=== PATIENT | female | born 1975 | race Caucasian/White ===

== ENCOUNTER 2016-09-22 09:04 | Inpatient (IN) | payer MEDICAID ==
[~2016-09-22] VITALS: Ht 167.6 cm; Wt 97.5 kg
[2016-09-22 10:30] LABS: PLATELET COUNT 328 x10^3mcL (130-400)
[2016-09-22 10:38] LABS: RED CELL DISTRIBUTION WIDTH 18.9 % (11.5-14.5)
[2016-09-22 11:03] LABS: CALCIUM 8.5 mg/dL (8.5-10.1); CARBON DIOXIDE 26.8 mmol/L (21-32); CHLORIDE SERUM 107 mmol/L (98-107); CREATININE SERUM 0.8 mg/dL (0.6-1.0); GFR1 > 60 mL/min; GLUCOSE SERUM 105 mg/dL (74-106); POTASSIUM SERUM 4.3 mmol/L (3.5-5.1); SODIUM SERUM 140 mmol/L (136-145)
[2016-09-22 11:08] LABS: ALKALINE PHOSPHATASE 60 U/L (46-116); ALT/SGPT 35 U/L (14-59); AST/SGOT 27 U/L (15-37); BILIRUBIN TOTAL 0.41 mg/dL (0.20-1.00); LIPASE 199 IU/L (73-393); TOTAL PROTEIN, SERUM 6.9 g/dL (6.4-8.2)
[2016-09-22 11:15] LABS: ALBUMIN 3.3 g/dL (3.4-5.0)
[2016-09-22 11:32] LABS: BAND NEUTROPHIL 0 % (0-10); BASOPHIL 0 % (0-2); MONOCYTE 8 % (0-7); SEGMENTED NEUTROPHILS 58 % (37-75); rbc morphology (normal/abnorm) ABNORMAL (NORMAL)
[2016-09-22 11:33] LABS: ovalocyte/elliptocyte 1+
[2016-09-22 12:38] LABS: microscopic required? NO
[2016-09-22 12:47] LABS: urine erythrocyte NEGATIVE (NEGATIVE)
[2016-09-22 12:48] LABS: FREE T4 1.01 ng/dL (0.76-1.46); FREE THYROXINE INDEX 2.2 ug/dL (1.4-4.5); T4(THYROXINE) 6.7 ug/dL (4.7-13.3)
[2016-09-22 12:49] LABS: CHOLESTEROL/HDL RATIO 4.4
[2016-09-22 12:53] LABS: T3 TOTAL 0.98 ng/mL
[2016-09-22 12:56] LABS: AMPHETAMINE QUAL UR NONE DETECTED (NEG <=1000)
[2016-09-22 13:02] VITALS: BP 139/71
[2016-09-22 18:44] LABS: IRON 18 ug/dL (50-170); TOTAL IRON BINDING CAPACITY 491 ug/dL (250-450)
[2016-09-22 19:10] VITALS: BP 119/62
[2016-09-22 21:43] VITALS: BP 119/67
[2016-09-23 04:15] LABS: BASOPHIL % 4.3 % (0-2); PLATELET COUNT 182 x10^3mcL (130-400); RED CELL DISTRIBUTION WIDTH 17.2 % (11.5-14.5)
[2016-09-23 04:28] LABS: CALCIUM 7.7 mg/dL (8.5-10.1); CARBON DIOXIDE 26.3 mmol/L (21-32); CHLORIDE SERUM 107 mmol/L (98-107); CREATININE SERUM 0.8 mg/dL (0.6-1.0); GFR1 > 60 mL/min; GLUCOSE SERUM 105 mg/dL (74-106); PHOSPHOROUS 4.3 mg/dL (2.5-4.9); POTASSIUM SERUM 4.3 mmol/L (3.5-5.1); SODIUM SERUM 139 mmol/L (136-145)
[2016-09-23 04:46] LABS: rbc morphology (normal/abnorm) ABNORMAL (NORMAL)
[2016-09-23 04:47] LABS: ovalocyte/elliptocyte 1+; tear drop cell (dacryocyte) 1+
[2016-09-23 04:50] LABS: target cell (codocyte) 1+
[2016-09-23 05:56] VITALS: BP 98/50
[2016-09-23 09:21] VITALS: BP 96/50
[2016-09-23 13:51] VITALS: BP 110/55
[2016-09-23 17:59] VITALS: BP 115/74
[2016-09-23 21:12] VITALS: BP 112/64
[2016-09-24 03:17] LABS: RED BLOOD CELLS 4.16 M/mm3 (4.10-5.10)
[2016-09-24 05:54] VITALS: BP 116/68
[2016-09-24 09:15] VITALS: BP 125/69
[2016-09-24 09:58] LABS: PLATELET COUNT 344 x10^3mcL (130-400)
[2016-09-24 10:03] LABS: ALBUMIN 3.5 g/dL (3.4-5.0); CALCIUM 8.6 mg/dL (8.5-10.1); CARBON DIOXIDE 27.1 mmol/L (21-32); CHLORIDE SERUM 109 mmol/L (98-107); CREATININE SERUM 0.7 mg/dL (0.6-1.0); GFR1 > 60 mL/min; GLUCOSE SERUM 100 mg/dL (74-106); POTASSIUM SERUM 4.7 mmol/L (3.5-5.1); SODIUM SERUM 142 mmol/L (136-145)
[2016-09-24 10:58] LABS: RED CELL DISTRIBUTION WIDTH 18.8 % (11.5-14.5)
[2016-09-24 12:02] VITALS: BP 125/68
[2016-09-24 16:14] VITALS: BP 118/67
[2016-09-24 18:00] VITALS: BP 122/71
[2016-09-24 22:14] VITALS: BP 110/61
[2016-09-25 05:52] VITALS: BP 96/48
[2016-09-25 06:06] VITALS: BP 103/54
[2016-09-25 06:42] LABS: CALCIUM 8.3 mg/dL (8.5-10.1); CARBON DIOXIDE 24.9 mmol/L (21-32); CHLORIDE SERUM 104 mmol/L (98-107); CREATININE SERUM 0.7 mg/dL (0.6-1.0); GFR1 > 60 mL/min; GLUCOSE SERUM 99 mg/dL (74-106); MAGNESIUM 1.9 mg/dL (1.8-2.4); PHOSPHOROUS 4.9 mg/dL (2.5-4.9); POTASSIUM SERUM 4.3 mmol/L (3.5-5.1); SODIUM SERUM 139 mmol/L (136-145)
[2016-09-25 06:51] LABS: BASOPHIL % 1.4 % (0-2); PLATELET COUNT 299 x10^3mcL (130-400)
[2016-09-25 07:04] LABS: RED CELL DISTRIBUTION WIDTH 18.8 % (11.5-14.5)
[2016-09-25 09:06] VITALS: BP 104/49
[2016-09-25 09:07] LABS: rbc morphology (normal/abnorm) ABNORMAL (NORMAL)
[2016-09-25 09:08] LABS: ovalocyte/elliptocyte 1+; target cell (codocyte) 1+; tear drop cell (dacryocyte) 1+
[2016-09-25] MEDS ORDERED: COL100 PO (09:47)
[2016-09-25] MEDS ORDERED: VITC PO (09:47)
[2016-09-25] MEDS ORDERED: FER300 PO (09:47)
[2016-09-25] MEDS ORDERED: GOOD SENSE OMEP20 MG PO (10:14)
[2016-09-25 10:25] VITALS: BP 104/49
== END 2016-09-25 13:22 | disposition home or self-care (01) | DRG 243 ==
LOC: ED 09:04 → DU 11:29 → MU 11:29 → DU 12:39 → MU 09-23 08:11
PROVIDERS: Emergency Medicine; Family Medicine; Internal Medicine Gastroenterology; ADMIT Family Medicine
PROC: 0DB68ZX Excision of Stomach, Via Natural or Artificial Opening Endoscopic, Diagnostic (ICD-10-PCS; principal; 2016-09-24 12:45)
PROC: 0DJD8ZZ Inspection of Lower Intestinal Tract, Via Natural or Artificial Opening Endoscopic (ICD-10-PCS; 2016-09-24 12:45)
DX: K21.9 Gastro-esophageal reflux disease without esophagitis (principal); E44.0 Moderate protein-calorie malnutrition; K76.0 Fatty (change of) liver, not elsewhere classified; D50.9 Iron deficiency anemia, unspecified; N92.6 Irregular menstruation, unspecified; E78.5 Hyperlipidemia, unspecified; E66.9 Obesity, unspecified; N92.0 Excessive and frequent menstruation with regular cycle; N83.201 Unspecified ovarian cyst, right side; Z68.34 Body mass index [BMI] 34.0-34.9, adult
CPT/HCPCS: 43235; 45378; 80307; 83880; 84439; J1200; J1610; J1885; J2250; J2310; J3010; J3490; J7030; Q0092; Q0162

== ENCOUNTER 2017-08-09 12:39 | Inpatient (IN) | payer MEDICAID ==
[~2017-08-09] VITALS: Ht 167.6 cm; Wt 107.5 kg
[~2017-08-09 12:39] MED LIST: COL100 PO; FER300 PO; GOOD SENSE OMEP20 MG PO; VITC PO
[2017-08-09 13:14] VITALS: Ht 167.6 cm; Wt 107.5 kg
[2017-08-09 16:23] LABS: microscopic required? YES; urine erythrocyte NEGATIVE (NEGATIVE)
[2017-08-09 16:36] LABS: AMPHETAMINE QUAL UR NONE DETECTED (NEG <=1000)
[2017-08-09 16:38] LABS: ALBUMIN 3.3 g/dL (3.4-5.0); ALKALINE PHOSPHATASE 59 U/L (46-116); ALT/SGPT 33 U/L (14-59); AMYLASE 62 U/L (25-115); AST/SGOT 20 U/L (15-37); BILIRUBIN TOTAL 0.2 mg/dL (0.20-1.00); CALCIUM 8.1 mg/dL (8.5-10.1); CARBON DIOXIDE 24.9 mmol/L (21-32); CHLORIDE SERUM 104 mmol/L (98-107); CHOLESTEROL 215 mg/dL (<200); CREATININE SERUM 0.7 mg/dL (0.6-1.0); GFR1 > 60 mL/min; GLUCOSE SERUM 105 mg/dL (74-106); HDL CHOLESTEROL 37 mg/dL (40-60); LIPASE 260 IU/L (73-393); POTASSIUM SERUM 4.2 mmol/L (3.5-5.1); SODIUM SERUM 138 mmol/L (136-145); T4(THYROXINE) 5.5 ug/dL (4.7-13.3); TOTAL PROTEIN, SERUM 7.3 g/dL (6.4-8.2)
[2017-08-09 16:41] LABS: BASOPHIL % 0.2 % (0-2); PLATELET COUNT 264 x10^3mcL (130-400)
[2017-08-09 16:42] LABS: RED CELL DISTRIBUTION WIDTH 18.9 % (11.5-14.5)
[2017-08-09 16:47] LABS: rbc morphology (normal/abnorm) ABNORMAL (NORMAL)
[2017-08-09 17:50] LABS: MAGNESIUM 2.1 mg/dL (1.8-2.4); PHOSPHOROUS 4.2 mg/dL (2.5-4.9)
[2017-08-09 17:51] LABS: CHOLESTEROL/HDL RATIO 5.5
[2017-08-09 17:54] VITALS: BP 135/68; BP 156/98
[2017-08-09 17:58] LABS: FREE T4 0.84 ng/dL (0.76-1.46); FREE THYROXINE INDEX 1.6 ug/dL (1.4-4.5); T4(THYROXINE) 5.2 ug/dL (4.7-13.3)
[2017-08-09 18:33] LABS: T3 TOTAL 0.88 ng/mL
[2017-08-09 20:02] VITALS: BP 116/57
[2017-08-09 20:14] LABS: IRON 18 ug/dL (50-170); TOTAL IRON BINDING CAPACITY 468 ug/dL (250-450)
[2017-08-09 20:26] LABS: RED BLOOD CELLS 4.91 M/mm3 (4.10-5.10)
[2017-08-10 05:35] VITALS: BP 93/46
[2017-08-10 06:14] VITALS: BP 113/63
[2017-08-10 08:23] LABS: BASOPHIL % 0.8 % (0-2); PLATELET COUNT 238 x10^3mcL (130-400)
[2017-08-10 08:35] LABS: rbc morphology (normal/abnorm) ABNORMAL (NORMAL)
[2017-08-10 10:08] VITALS: BP 114/58
[2017-08-10 11:08] LABS: CALCIUM 7.6 mg/dL (8.5-10.1); CARBON DIOXIDE 23.4 mmol/L (21-32); CHLORIDE SERUM 106 mmol/L (98-107); CREATININE SERUM 0.7 mg/dL (0.6-1.0); GFR1 > 60 mL/min; GLUCOSE SERUM 90 mg/dL (74-106); POTASSIUM SERUM 4.3 mmol/L (3.5-5.1); SODIUM SERUM 139 mmol/L (136-145)
[2017-08-10 14:02] VITALS: BP 130/63
[2017-08-10 18:17] VITALS: BP 108/59
[2017-08-10 22:09] VITALS: BP 107/50
[2017-08-11 06:26] LABS: BASOPHIL % 0.4 % (0-2); PLATELET COUNT 244 x10^3mcL (130-400)
[2017-08-11 06:29] VITALS: BP 116/58
[2017-08-11 06:37] LABS: RED CELL DISTRIBUTION WIDTH 19.3 % (11.5-14.5)
[2017-08-11 08:03] LABS: rbc morphology (normal/abnorm) ABNORMAL (NORMAL)
[2017-08-11 08:12] LABS: CALCIUM 8.2 mg/dL (8.5-10.1); CARBON DIOXIDE 25.7 mmol/L (21-32); CHLORIDE SERUM 104 mmol/L (98-107); CREATININE SERUM 0.7 mg/dL (0.6-1.0); GFR1 > 60 mL/min; GLUCOSE SERUM 98 mg/dL (74-106); PHOSPHOROUS 4.8 mg/dL (2.5-4.9); POTASSIUM SERUM 4.2 mmol/L (3.5-5.1); SODIUM SERUM 139 mmol/L (136-145)
[2017-08-11] MEDS ORDERED: FER300 PO (13:02)
[2017-08-11] MEDS ORDERED: ATORVASTATIN CA40 M1 PO (13:03)
[2017-08-11] MEDS ORDERED: PRI20 PO (13:11)
[2017-08-11 14:28] VITALS: BP 128/67
[2017-08-11 14:30] VITALS: BP 125/61
[2017-08-11] MEDS ORDERED: BACTRIM DS1 TAB PO (15:53)
== END 2017-08-11 15:40 | disposition home or self-care (01) | DRG 253 ==
LOC: ED 12:39 → DU 16:01
PROVIDERS: Emergency Medicine; Family Medicine; Internal Medicine Gastroenterology
PROC: 0DB98ZX Excision of Duodenum, Via Natural or Artificial Opening Endoscopic, Diagnostic (ICD-10-PCS; principal; 2017-08-11 10:30)
PROC: 0DB78ZX Excision of Stomach, Pylorus, Via Natural or Artificial Opening Endoscopic, Diagnostic (ICD-10-PCS; 2017-08-11 10:30)
PROC: 0W3P8ZZ Control Bleeding in Gastrointestinal Tract, Via Natural or Artificial Opening Endoscopic (ICD-10-PCS; 2017-08-11 10:30)
DX: K31.811 Angiodysplasia of stomach and duodenum with bleeding (principal); E11.65 Type 2 diabetes mellitus with hyperglycemia; K21.9 Gastro-esophageal reflux disease without esophagitis; E44.1 Mild protein-calorie malnutrition; N39.0 Urinary tract infection, site not specified; E66.9 Obesity, unspecified; E78.00 Pure hypercholesterolemia, unspecified; E78.5 Hyperlipidemia, unspecified; E83.51 Hypocalcemia; N92.0 Excessive and frequent menstruation with regular cycle; D50.0 Iron deficiency anemia secondary to blood loss (chronic); Z98.51 Tubal ligation status; Z79.899 Other long term (current) drug therapy; Z83.3 Family history of diabetes mellitus; Z68.37 Body mass index [BMI] 37.0-37.9, adult
CPT/HCPCS: 43235; 82962; 83880; 84439; 88344; J0696; J1200; J1610; J2250; J2310; J2405; J2916; J3010; J3490; J7030; Q0092

== ENCOUNTER 2018-02-10 21:01 | Emergency (ER) | payer MEDICAID ==
[~2018-02-10] VITALS: Ht 165.1 cm; Wt 106.6 kg
[~2018-02-10 21:01] MED LIST changes: +ATORVASTATIN CA40 M1 PO; +BACTRIM DS1 TAB PO; +PEP20 PO; +PRI20 PO; +SIMETHICONE80 MG CH
[2018-02-10 21:05] VITALS: BP 161/87; Ht 165.1 cm; Wt 106.6 kg
== END 2018-02-10 23:05 | disposition home or self-care (01) ==
LOC: ED 21:01
DX: K08.89 Other specified disorders of teeth and supporting structures (principal); E78.00 Pure hypercholesterolemia, unspecified

== ENCOUNTER 2018-03-31 09:06 | Emergency (ER) | payer MEDICAID ==
[2018-03-31 09:11] VITALS: Ht 167.6 cm
[2018-03-31 10:07] LABS: CALCIUM 8.4 mg/dL (8.5-10.1); CARBON DIOXIDE 27.2 mmol/L (21-32); CHLORIDE SERUM 104 mmol/L (98-107); CREATININE SERUM 0.7 mg/dL (0.6-1.0); GFR1 > 60 mL/min; GLUCOSE SERUM 99 mg/dL (74-106); POTASSIUM SERUM 4.1 mmol/L (3.5-5.1); SODIUM SERUM 138 mmol/L (136-145)
[2018-03-31 10:13] LABS: ALKALINE PHOSPHATASE 59 U/L (46-116); ALT/SGPT 33 U/L (14-59); AST/SGOT 23 U/L (15-37); BILIRUBIN TOTAL 0.4 mg/dL (0.20-1.00); CHOLESTEROL 197 mg/dL (<200); CHOLESTEROL/HDL RATIO 4.8; HDL CHOLESTEROL 41 mg/dL (40-60); LIPASE 176 IU/L (73-393); TRIGLYCERIDES 105 mg/dL (<150)
[2018-03-31 10:15] LABS: ALBUMIN 3.2 g/dL (3.4-5.0)
[2018-03-31 10:18] LABS: T3 TOTAL 0.87 ng/mL
[2018-03-31 10:23] LABS: FREE T4 0.89 ng/dL (0.76-1.46); FREE THYROXINE INDEX 1.9 ug/dL (1.4-4.5)
[2018-03-31 11:58] LABS: PLATELET COUNT 319 x10^3mcL (130-400); RED CELL DISTRIBUTION WIDTH 18.5 % (11.5-14.5)
[2018-03-31 12:22] VITALS: BP 144/71
== END 2018-03-31 12:22 | disposition home or self-care (01) ==
LOC: ED 09:06
PROVIDERS: Specialist
DX: R07.89 Other chest pain (principal); D64.9 Anemia, unspecified; E78.00 Pure hypercholesterolemia, unspecified
CPT/HCPCS: 83880; 84439; J1885; Q0092

== ENCOUNTER 2018-04-17 08:15 | Emergency (ER) | payer MEDICAID ==
[~2018-04-17] VITALS: Ht 167.6 cm; Wt 48.1 kg
[2018-04-17 08:24] VITALS: Ht 167.6 cm; Wt 48.1 kg
[2018-04-17 10:27] VITALS: BP 136/86
== END 2018-04-17 10:26 | disposition home or self-care (01) ==
LOC: ED 08:15
DX: R05 Cough (principal); E78.00 Pure hypercholesterolemia, unspecified; Z86.2 Personal history of diseases of the blood and blood-forming organs and certain disorders involving the immune mechanism
CPT/HCPCS: Q0092

== ENCOUNTER 2018-08-11 09:00 | Emergency (ER) | payer MEDICAID ==
[~2018-08-11] VITALS: Ht 162.6 cm; Wt 108.9 kg
[2018-08-11 09:25] VITALS: Ht 162.6 cm; Wt 108.9 kg
[2018-08-11 11:09] LABS: PLATELET COUNT 266 x10^3mcL (130-400)
[2018-08-11 11:14] LABS: RED CELL DISTRIBUTION WIDTH 20.6 % (11.5-14.5)
[2018-08-11 11:15] LABS: CALCIUM 8.2 mg/dL (8.5-10.1); CARBON DIOXIDE 29.8 mmol/L (21-32); CHLORIDE SERUM 104 mmol/L (98-107); CREATININE SERUM 0.7 mg/dL (0.6-1.0); GFR1 > 60 mL/min; GLUCOSE SERUM 119 mg/dL (74-106); POTASSIUM SERUM 4.2 mmol/L (3.5-5.1); SODIUM SERUM 139 mmol/L (136-145)
[2018-08-11 11:28] LABS: ALBUMIN 3.2 g/dL (3.4-5.0); ALKALINE PHOSPHATASE 65 U/L (46-116); ALT/SGPT 31 U/L (14-59); AST/SGOT 20 U/L (15-37); BILIRUBIN TOTAL 0.1 mg/dL (0.20-1.00); T4(THYROXINE) 5.5 ug/dL (4.7-13.3); TOTAL PROTEIN, SERUM 7.2 g/dL (6.4-8.2)
[2018-08-11 14:26] LABS: ATYPICAL LYMPH 0 %; BAND NEUTROPHIL 12 % (0-10); BASOPHIL 4 % (0-2); MONOCYTE 8 % (0-7); SEGMENTED NEUTROPHILS 68 % (37-75); rbc morphology (normal/abnorm) ABNORMAL (NORMAL)
[2018-08-11 14:29] LABS: PLATELET MORPHOLOGY N
[2018-08-11 15:17] VITALS: BP 119/60
== END 2018-08-11 15:17 | disposition home or self-care (01) ==
LOC: ED 09:00
PROVIDERS: Emergency Medicine
DX: N93.8 Other specified abnormal uterine and vaginal bleeding (principal); D25.9 Leiomyoma of uterus, unspecified; D50.0 Iron deficiency anemia secondary to blood loss (chronic); E78.00 Pure hypercholesterolemia, unspecified; E46 Unspecified protein-calorie malnutrition; E11.9 Type 2 diabetes mellitus without complications; E66.01 Morbid (severe) obesity due to excess calories; Z68.41 Body mass index [BMI] 40.0-44.9, adult; Z86.2 Personal history of diseases of the blood and blood-forming organs and certain disorders involving the immune mechanism; Z98.51 Tubal ligation status
CPT/HCPCS: 36415

== ENCOUNTER 2019-01-17 10:01 | Emergency (ER) | payer MEDICAID ==
[~2019-01-17] VITALS: Ht 167.6 cm; Wt 103.4 kg
[2019-01-17 10:12] VITALS: Ht 167.6 cm; Wt 103.4 kg
[2019-01-17 12:08] VITALS: BP 136/69
== END 2019-01-17 12:08 | disposition home or self-care (01) ==
LOC: ED 10:01
DX: R07.89 Other chest pain (principal); R00.2 Palpitations; R05 Cough; Z98.51 Tubal ligation status
CPT/HCPCS: J1885

== ENCOUNTER 2019-04-30 19:50 | Emergency (ER) | payer SELFPAY ==
[~2019-04-30] VITALS: Ht 167.6 cm; Wt 102.6 kg
[2019-04-30 19:54] VITALS: Ht 167.6 cm; Wt 102.6 kg
[2019-04-30 21:07] LABS: CARBON DIOXIDE 27.4 mmol/L (21-32); CHLORIDE SERUM 104 mmol/L (98-107); CREATININE SERUM 0.7 mg/dL (0.6-1.0); GFR1 > 60 mL/min; GLUCOSE SERUM 96 mg/dL (74-106); SODIUM SERUM 139 mmol/L (136-145)
[2019-04-30 21:12] LABS: ALBUMIN 3.3 g/dL (3.4-5.0); ALKALINE PHOSPHATASE 77 U/L (46-116); ALT/SGPT 38 U/L (14-59); AST/SGOT 29 U/L (15-37); BILIRUBIN TOTAL 0.36 mg/dL (0.20-1.00); LIPASE 176 IU/L (73-393); TOTAL PROTEIN, SERUM 7.2 g/dL (6.4-8.2)
[2019-04-30 21:21] LABS: PLATELET COUNT 320 x10^3mcL (130-400)
[2019-04-30 21:42] LABS: RED CELL DISTRIBUTION WIDTH 21.6 % (11.5-14.5)
[2019-04-30 22:04] LABS: MONOCYTE 5 % (0-7); SEGMENTED NEUTROPHILS 72 % (37-75)
[2019-04-30 22:05] LABS: BAND NEUTROPHIL 0 % (0-10); BASOPHIL 0 % (0-2)
[2019-04-30 22:06] LABS: rbc morphology (normal/abnorm) ABNORMAL (NORMAL); target cell (codocyte) 1+
[2019-05-01 02:47] VITALS: BP 120/63
== END 2019-05-01 02:47 | disposition home or self-care (01) ==
LOC: ED 19:50
PROVIDERS: Emergency Medicine
DX: A08.4 Viral intestinal infection, unspecified (principal); D50.0 Iron deficiency anemia secondary to blood loss (chronic); N92.0 Excessive and frequent menstruation with regular cycle; E78.00 Pure hypercholesterolemia, unspecified
CPT/HCPCS: J1885; J2405; J7030; J7040; P9016

== ENCOUNTER 2019-07-30 09:09 | Emergency (ER) | payer MEDICAID ==
[~2019-07-30] VITALS: Ht 167.6 cm; Wt 103.9 kg
[2019-07-30 09:20] VITALS: Ht 167.6 cm; Wt 103.9 kg
[2019-07-30 10:25] LABS: CALCIUM 8.7 mg/dL (8.5-10.1); CARBON DIOXIDE 25.1 mmol/L (21-32); CHLORIDE SERUM 104 mmol/L (98-107); CREATININE SERUM 0.7 mg/dL (0.6-1.0); GFR1 > 60 mL/min; GLUCOSE SERUM 125 mg/dL (74-106); SODIUM SERUM 139 mmol/L (136-145)
[2019-07-30 10:30] LABS: ALBUMIN 3.4 g/dL (3.4-5.0); ALKALINE PHOSPHATASE 62 U/L (46-116); ALT/SGPT 38 U/L (14-59); AST/SGOT 18 U/L (15-37); BILIRUBIN TOTAL 0.4 mg/dL (0.20-1.00); TOTAL PROTEIN, SERUM 7.7 g/dL (6.4-8.2)
[2019-07-30 10:33] LABS: PLATELET COUNT 350 x10^3mcL (130-400)
[2019-07-30 11:15] LABS: UA SPECIFIC GRAVITY 1.015 (1.005-1.035); microscopic required? YES; urine erythrocyte 2+ (NEGATIVE)
[2019-07-30 11:53] LABS: BAND NEUTROPHIL 2 % (0-10); BASOPHIL 0 % (0-2); MONOCYTE 6 % (0-7); SEGMENTED NEUTROPHILS 60 % (37-75); ovalocyte/elliptocyte 1+; rbc morphology (normal/abnorm) ABNORMAL (NORMAL); target cell (codocyte) 1+; tear drop cell (dacryocyte) 1+
[2019-07-30 11:54] LABS: PLATELET MORPHOLOGY GIANT PLATELET SEEN
[2019-07-30 12:04] LABS: T4(THYROXINE) 5.1 ug/dL (4.7-13.3)
[2019-07-30 12:07] LABS: AMPHETAMINE QUAL UR NONE DETECTED (See below)
[2019-07-30 13:56] VITALS: BP 121/63
== END 2019-07-30 15:07 | disposition home or self-care (01) ==
LOC: ED 09:09
PROVIDERS: Emergency Medicine
DX: D50.9 Iron deficiency anemia, unspecified (principal); E78.00 Pure hypercholesterolemia, unspecified; N93.8 Other specified abnormal uterine and vaginal bleeding; E66.9 Obesity, unspecified; Z68.36 Body mass index [BMI] 36.0-36.9, adult; Z98.51 Tubal ligation status
CPT/HCPCS: 36415; 83880; J1885; J3490; Q0092

== ENCOUNTER 2020-07-09 11:59 | Emergency (ER) | payer MEDICAID ==
[~2020-07-09] VITALS: Ht 167.6 cm; Wt 105.2 kg
[2020-07-09 12:23] VITALS: BP 132/67; Ht 167.6 cm; Wt 105.2 kg
== END 2020-07-09 13:15 | disposition home or self-care (01) ==
LOC: ED 11:59
DX: R00.2 Palpitations (principal); M54.5 Low back pain; E78.00 Pure hypercholesterolemia, unspecified; Z98.51 Tubal ligation status

== ENCOUNTER 2020-08-03 15:17 | Emergency (ER) | payer MEDICAID ==
[~2020-08-03] VITALS: Ht 167.6 cm; Wt 106.1 kg
[2020-08-03 15:25] VITALS: Ht 167.6 cm; Wt 106.1 kg
[2020-08-03 16:11] LABS: BASOPHIL % 0.7 % (0.2-1.3); PLATELET COUNT 272 x10^3mcL (179-408)
[2020-08-03 16:23] LABS: RED CELL DISTRIBUTION WIDTH 26.7 % (12.3-17.7)
[2020-08-03 16:29] LABS: CALCIUM 8.6 mg/dL (8.5-10.1); CARBON DIOXIDE 28.5 mmol/L (21-32); CHLORIDE SERUM 103 mmol/L (98-107); CREATININE SERUM 0.8 mg/dL (0.6-1.0); GFR1 > 60 mL/min; GLUCOSE SERUM 164 mg/dL (74-106); POTASSIUM SERUM 4.4 mmol/L (3.5-5.1); SODIUM SERUM 141 mmol/L (136-145)
[2020-08-03 16:34] LABS: ALBUMIN 3.6 g/dL (3.4-5.0); ALKALINE PHOSPHATASE 80 U/L (46-116); ALT/SGPT 56 U/L (14-59); AST/SGOT 31 U/L (15-37); BILIRUBIN TOTAL 0.4 mg/dL (0.20-1.00); TOTAL PROTEIN, SERUM 7.7 g/dL (6.4-8.2)
[2020-08-03 17:02] LABS: T3 TOTAL 1.16 ng/mL
[2020-08-03 17:03] LABS: FREE T4 0.85 ng/dL (0.76-1.46); FREE THYROXINE INDEX 1.9 ug/dL (1.4-4.5); T4(THYROXINE) 5.6 ug/dL (4.7-13.3); rbc morphology (normal/abnorm) ABNORMAL (NORMAL)
[2020-08-03 17:04] LABS: ovalocyte/elliptocyte 1+
[2020-08-03 18:25] VITALS: BP 125/72
== END 2020-08-03 18:25 | disposition home or self-care (01) ==
LOC: ED 15:17
PROVIDERS: Specialist
DX: F41.0 Panic disorder [episodic paroxysmal anxiety] (principal); E78.00 Pure hypercholesterolemia, unspecified; Z98.51 Tubal ligation status; Z86.2 Personal history of diseases of the blood and blood-forming organs and certain disorders involving the immune mechanism
CPT/HCPCS: 82962; 84439